=== PATIENT | male | born 1970 | race Two or more races ===

== ENCOUNTER 2019-02-17 05:06 | Day surgery (SDC) | payer OTHER ==
[~2019-02-17 05:06] MED LIST: FLEXERIL PO; PERCOCET 10-321 EACH PO; SYNTHROID100 MCG PO
[2019-02-17] MEDS ORDERED: IBUPROFEN600 MG PO (12:05)
== END 2019-02-17 13:19 | disposition home or self-care (01) ==
LOC: CIR.AMB 05:06
DX: D17.22 Benign lipomatous neoplasm of skin and subcutaneous tissue of left arm (principal)

== ENCOUNTER 2019-04-27 06:00 | Outpatient (CLI) | payer OTHER ==
[~2019-04-27 06:00] MED LIST changes: +IBUPROFEN600 MG PO
[2019-04-27] MEDS ORDERED: ZANTAC300 MG PO (08:05)
== END 2019-04-27 06:05 | disposition home or self-care (01) ==
LOC: LAB 06:00 → ADM 07:00 → EDSTATUS 05-05 07:00 → CIR.AMB 05-05 07:00
DX: D49.2 Neoplasm of unspecified behavior of bone, soft tissue, and skin (principal); M70.9 Unspecified soft tissue disorder related to use, overuse and pressure; Z01.810 Encounter for preprocedural cardiovascular examination